=== PATIENT | female | born 1965 | race Caucasian/White ===

== ENCOUNTER 2019-06-02 14:11 | Emergency (ER) | payer SELFPAY ==
[~2019-06-02] VITALS: Ht 157.5 cm; Wt 90.7 kg
--- OUTSIDE RECORDS SUMMARY | 2019-06-02 14:13 | XMS REPORT ---
Author [facility] Address Unknown Phone Unavailable Care Team Providers Care Family Readiness Support Assistant Name Role Phone Unavailable Unavailable Payers Payer Name Policy Type Policy Number Effective Date Expiration Date Problems This patient has no known problems. Allergies, Adverse Reactions, Alerts Allergy Name Allergy Type Status Severity Reaction(s) Onset Date Inactive Date Treating Clinician Comments codeine DA Active U 2018-01-23 00:00:00 hydrocodone DA Active U 2018-01-23 00:00:00 prednisone DA Active U 2018-01-23 00:00:00 Medications This patient has no known medications. Encounters Start Date/Time End Date/Time Encounter Type Admission Type Attending Clinicians Care Facility Care Department Encounter ID 2018-07-31 00:00:00 2018-07-31 00:00:00 Outpatient [facility] [id number] 2018-06-27 00:00:00 2018-06-27 00:00:00 Outpatient [facility] [id number] 2018-06-01 00:00:00 2018-06-01 00:00:00 Outpatient [facility] [id number] 2018-05-03 00:00:00 2018-05-03 00:00:00 Outpatient [facility] [id number] 2018-05-01 09:17:49 2018-05-01 09:17:49 Outpatient [facility] [id number] 2018-05-01 09:06:41 2018-05-01 09:06:41 Outpatient [facility] [id number] 2018-04-30 14:37:17 2018-04-30 14:37:17 Outpatient [facility] [id number] 2018-03-28 00:00:00 2018-03-28 00:00:00 Outpatient [facility] [id number] 2018-03-28 00:00:00 2018-03-28 00:00:00 Outpatient [facility] [id number] 2018-03-14 10:32:57 2018-03-14 10:32:57 Outpatient [facility] [id number] 2018-03-14 00:00:00 2018-03-14 00:00:00 Outpatient [facility] [id number] 2018-03-14 00:00:00 2018-03-14 00:00:00 Outpatient [facility] [id number] 2018-02-28 00:00:00 2018-02-28 00:00:00 Outpatient [facility] [id number] 2018-01-27 15:32:21 2018-01-27 15:32:21 Outpatient [facility] [id number] 2018-01-27 12:40:28 2018-01-27 12:40:28 Outpatient [facility] [id number] 2018-01-27 10:40:00 2018-01-27 10:40:00 Emergency [facility] [id number] 2018-01-17 00:00:00 2018-01-17 00:00:00 Outpatient [facility] [id number] 2017-10-27 07:50:41 2017-10-27 07:50:41 Outpatient [facility] [id number] 2017-10-19 13:03:42 2017-10-19 13:03:42 Outpatient [facility] [id number] 2017-10-19 11:34:05 2017-10-19 11:34:05 Outpatient [facility] [id number] 2017-10-12 08:22:59 2017-10-12 08:22:59 Outpatient [facility] [id number] 2017-10-12 08:11:54 2017-10-12 08:11:54 Outpatient [facility] [id number] Results Test Description Test Time Test Comments Text Results Atomic Results Result Comments URINALYSIS COMPLETE 2019-02-10 11:45:00 UA COLOR (test code=COLU) ORANGE YELLOW UA APPEARANCE (test code=APPU) CLEAR CLEAR UA GLUCOSE DIPSTICK (test code=DGLUU) norm mg/dL NEGATIVE UA BILIRUBIN DIPSTICK (test code=BILU) 6 mg/dL NEGATIVE UA KETONE DIPSTICK (test code=KETU) neg mg/dL NEGATIVE UA SPECIFIC GRAVITY (test code=SGU) 1.005 1.001-1.035 UA BLOOD DIPSTICK (test code=MARLI) 25 (1+) Ryan/uL NEGATIVE UA PH DIPSTICK (test code=TAYLOR) 6.5 5.0-8.0 UA PROTEIN DIPSTICK (test code=PROU) neg mg/dL Neg-15 UA UROBILINIOGEN DIPSTICK (test code=URO) 8 mg/dL 0.0-0.2 UA NITRITE DIPSTICK (test code=AUTUMN) POSITIVE NEGATIVE UA LEUKOCYTE ESTERASE DIPSTICK (test code=LEUU) 25 [place]/uL (Trace) uL NEGATIVE UA WBC (test code=WBCU) 3-5 per HPF 0-5 UA RBC (test code=RBCU) 0-3 per HPF 0-5 UA EPITHELIAL CELLS (test code=EPIU) Rare (0-1/hpf) per HPF Few UA BACTERIA (test code=BACU) TRACE per HPF NONE UA MUCUS (test code=MUCU) FEW per LPF NONE-FEW Urine Source? Clean CatchURINALYSIS [id number] 11:34:00* Test Item Value Reference Range Comments UA COLOR (test code=COLU) ORANGE YELLOW UA APPEARANCE (test code=APPU) CLEAR CLEAR UA GLUCOSE DIPSTICK (test code=DGLUU) norm mg/dL NEGATIVE UA BILIRUBIN DIPSTICK (test code=BILU) 6 mg/dL NEGATIVE UA KETONE DIPSTICK (test code=KETU) neg mg/dL NEGATIVE UA SPECIFIC GRAVITY (test code=SGU) 1.005 1.001-1.035 UA BLOOD DIPSTICK (test code=MARLI) 25 (1+) Ryan/uL NEGATIVE UA PH DIPSTICK (test code=TAYLOR) 6.5 5.0-8.0 UA PROTEIN DIPSTICK (test code=PROU) neg mg/dL Neg-15 UA UROBILINIOGEN DIPSTICK (test code=URO) 8 mg/dL 0.0-0.2 UA NITRITE DIPSTICK (test code=AUTUMN) POSITIVE NEGATIVE UA LEUKOCYTE ESTERASE DIPSTICK (test code=LEUU) 25 [place]/uL (Trace) uL NEGATIVE UA WBC (test code=WBCU) per HPF 0-5 UA RBC (test code=RBCU) per HPF 0-5 UA EPITHELIAL CELLS (test code=EPIU) per HPF Few UA BACTERIA (test code=BACU) per HPF NONE Urine Source? Clean Catch
--- NOTE | 2019-06-02 15:14 | Diagnostic Imaging Report ---
Frontal and lateral views of the chest. HISTORY: Cough, fever, COPD COMPARISON: None available. DISCUSSION: Lungs: The lungs are well inflated. No evidence of a consolidative pneumonia or pulmonary alveolar edema. Pleura: No pleural effusion or pneumothorax. Heart and mediastinum: The cardiomediastinal silhouette appear(s) unremarkable. Bones and soft tissues: Mild multilevel degenerative disc changes. Metallic surgical clips. IMPRESSION: No acute radiographic abnormality. Signed by: Dr. Shreyas Snyder D.O., M.M.M. on 06/02/2019 3:11 PM
== END 2019-06-02 16:17 | disposition home or self-care (01) ==
LOC: ER 14:11
DX: R05 Cough (principal); J20.9 Acute bronchitis, unspecified; J44.9 Chronic obstructive pulmonary disease, unspecified; F17.210 Nicotine dependence, cigarettes, uncomplicated
CPT/HCPCS: 71046; 99284

== ENCOUNTER 2021-04-22 16:30 | Emergency (ER) | payer SELFPAY ==
[~2021-04-22] VITALS: Ht 157.5 cm; Wt 74.8 kg
[2021-04-22] MEDS ORDERED: ACETAMINOPHEN 325 MG TAB PO ONE (18:15)
[2021-04-22 18:47] LABS: BASOPHILS # (AUTO) 0.1 (0.0-0.1); EOSINOPHILS # (AUTO) 0.3 (0.0-0.4); EOSINOPHILS % 4.2 % (0.0-6.0); HEMATOCRIT 42.9 % (34.2-44.1); HEMOGLOBIN 13.8 g/dL (12.0-16.0); LYMPHOCYTES # (AUTO) 2.7 (1.0-3.2); LYMPHOCYTES % 37.4 % (18.0-39.1); MEAN CORPUSCULAR HEMOGLOBIN 29.5 pg (28-32); MEAN CORPUSCULAR HGB CONC 32.2 g/dL (31-35); MEAN CORPUSCULAR VOLUME 91.7 fL (81-99); MONOCYTES # (AUTO) 0.6 (0.2-0.8); MONOCYTES % 7.8 % (4.4-11.3); NEUTROPHILS # (AUTO) 3.5 (2.1-6.9); PLATELET COUNT 349 x10e3/uL (140-360); RED BLOOD COUNT 4.68 x10e6/uL (3.6-5.1)
[2021-04-22 19:04] LABS: AMYLASE 48 U/L (25-125); LIPASE 28 U/L (8-78)
[2021-04-22 19:07] LABS: ALBUMIN 4.1 g/dL (3.5-5.0); ALBUMIN/GLOBULIN RATIO 1.3 (0.8-2.0); ANION GAP 16.3 mmol/L (8-16); CALCIUM 9.5 mg/dL (8.4-10.2); CREATININE, SERUM 0.84 mg/dL (0.57-1.11)
[2021-04-22 19:09] LABS: POTASSIUM 5.3 mmol/L (3.5-5.1)
[2021-04-22 20:46] VITALS: BP 147/91
[2021-04-22] MEDS ORDERED: SODIUM CHLORIDE 0.9% 50ML 50 ML ONE (21:10)
[2021-04-22] MEDS ORDERED: IOPAMIDOL 370 MG/ML 200 ML INFUS..BTL INJ ONE (21:10)
== END 2021-04-22 20:49 | disposition home or self-care (01) ==
LOC: ER 17:48
DX: S20.211A Contusion of right front wall of thorax, initial encounter (principal); S30.1XXA Contusion of abdominal wall, initial encounter; W01.0XXA Fall on same level from slipping, tripping and stumbling without subsequent striking against object, initial encounter; Y93.K1 Activity, walking an animal; Y92.89 Other specified places as the place of occurrence of the external cause; F17.210 Nicotine dependence, cigarettes, uncomplicated
CPT/HCPCS: 36415; 71260; 74177; 80053; 82150; 83690; 85025; 99284; Q9967